=== PATIENT | male | born 1985 | race Caucasian/White ===

== ENCOUNTER 2023-03-08 10:30 | Emergency (ER) | payer MEDICAID ==
[~2023-03-08] VITALS: Ht 167.6 cm; Wt 75.0 kg
[2023-03-08] MEDS ORDERED: PSEU120T56 MT (11:37)
[2023-03-08 11:56] VITALS: BP 119/78
== END 2023-03-08 11:58 | disposition home or self-care (01) ==
LOC: ER 10:30
DX: R22.0 Localized swelling, mass and lump, head (principal); Z90.49 Acquired absence of other specified parts of digestive tract
CPT/HCPCS: 99282